=== PATIENT | female | born 1980 | race African-American/Black ===

== ENCOUNTER 2016-11-03 19:41 | Emergency (ER) | payer MEDICAID, OTHER ==
[~2016-11-03] VITALS: Ht 167.6 cm; Wt 78.0 kg
[~2016-11-03 19:41] MED LIST: DIVA500T3; LORA-249; RISP2
[2016-11-04 05:38] VITALS: BP 115/72
== END 2016-11-04 06:55 | disposition home or self-care (01) ==
LOC: ER 19:41
DX: L29.9 Pruritus, unspecified (principal); F29 Unspecified psychosis not due to a substance or known physiological condition; Z86.59 Personal history of other mental and behavioral disorders
CPT/HCPCS: 99283

== ENCOUNTER 2017-03-15 21:55 | Emergency (ER) | payer MEDICAID ==
[~2017-03-15] VITALS: Ht 162.6 cm; Wt 82.0 kg
[2017-03-15 22:57] VITALS: BP 104/59
== END 2017-03-16 05:29 | disposition left against medical advice (07) ==
LOC: ER 21:55
DX: R51 Headache (principal); Z53.21 Procedure and treatment not carried out due to patient leaving prior to being seen by health care provider

== ENCOUNTER 2017-07-12 01:17 | Emergency (ER) | payer MEDICAID ==
[~2017-07-12] VITALS: Ht 165.1 cm; Wt 86.0 kg
[2017-07-12 01:31] VITALS: BP 120/68
== END 2017-07-12 09:33 | disposition left against medical advice (07) ==
LOC: ER 01:17
DX: Z53.21 Procedure and treatment not carried out due to patient leaving prior to being seen by health care provider (principal)

== ENCOUNTER 2017-07-14 05:15 | Emergency (ER) | payer MEDICAID ==
[~2017-07-14] VITALS: Ht 167.6 cm; Wt 72.4 kg
[2017-07-14] MEDS ORDERED: ACETAMINOPHEN 325MG TABLET PO ONE (12:45)
[2017-07-14 14:10] VITALS: BP 109/59
== END 2017-07-14 14:11 | disposition home or self-care (01) ==
LOC: ER 05:15
DX: S60.222A Contusion of left hand, initial encounter (principal); F32.9 Major depressive disorder, single episode, unspecified; X58.XXXA Exposure to other specified factors, initial encounter; Y92.018 Other place in single-family (private) house as the place of occurrence of the external cause
CPT/HCPCS: 99284

== ENCOUNTER 2017-07-14 23:52 | Emergency (ER) | payer MEDICAID ==
[~2017-07-14] VITALS: Ht 167.6 cm; Wt 85.0 kg
[2017-07-15 04:30] VITALS: BP 98/63
== END 2017-07-15 06:10 | disposition home or self-care (01) ==
LOC: ER 23:52
DX: Z00.8 Encounter for other general examination (principal); F32.9 Major depressive disorder, single episode, unspecified
CPT/HCPCS: 99283

== ENCOUNTER 2017-07-16 00:52 | Emergency (ER) | payer MEDICAID ==
[~2017-07-16] VITALS: Ht 167.6 cm; Wt 79.5 kg
[2017-07-16 07:10] VITALS: BP 106/71
== END 2017-07-16 07:25 | disposition home or self-care (01) ==
LOC: ER 00:55
DX: R53.83 Other fatigue (principal); F20.9 Schizophrenia, unspecified; F32.9 Major depressive disorder, single episode, unspecified
CPT/HCPCS: 99281

== ENCOUNTER 2017-07-18 18:25 | Emergency (ER) | payer MEDICAID ==
[~2017-07-18] VITALS: Ht 167.6 cm; Wt 78.0 kg
[2017-07-18] MEDS ORDERED: IBUPROFEN 400MG TABLET PO ONE (22:00)
[2017-07-18 22:30] VITALS: BP 102/80
== END 2017-07-18 22:30 | disposition home or self-care (01) ==
LOC: ER 19:11
DX: G44.209 Tension-type headache, unspecified, not intractable (principal); F32.9 Major depressive disorder, single episode, unspecified
CPT/HCPCS: 99282

== ENCOUNTER 2017-07-19 03:00 | Emergency (ER) | payer MEDICAID ==
[~2017-07-19] VITALS: Ht 167.6 cm; Wt 78.0 kg
[2017-07-19 08:28] VITALS: BP 112/64
== END 2017-07-19 08:30 | disposition home or self-care (01) ==
LOC: ER 03:00
DX: R51 Headache (principal); F32.9 Major depressive disorder, single episode, unspecified
CPT/HCPCS: 99282; Z7610

== ENCOUNTER 2017-07-20 21:34 | Emergency (ER) | payer MEDICAID ==
[~2017-07-20] VITALS: Ht 167.6 cm; Wt 74.5 kg
[2017-07-20 22:01] VITALS: BP 107/62
== END 2017-07-20 23:21 | disposition left against medical advice (07) ==
LOC: ER 21:36
DX: R51 Headache (principal); F32.9 Major depressive disorder, single episode, unspecified
CPT/HCPCS: 99281

== ENCOUNTER 2017-07-20 23:57 | Emergency (ER) | payer MEDICAID ==
[~2017-07-20] VITALS: Ht 167.6 cm; Wt 74.7 kg
[2017-07-21 09:40] VITALS: BP 112/68
== END 2017-07-21 09:42 | disposition home or self-care (01) ==
LOC: ER 23:57
DX: S93.609A Unspecified sprain of unspecified foot, initial encounter (principal); X58.XXXA Exposure to other specified factors, initial encounter; Y93.9 Activity, unspecified; Y92.9 Unspecified place or not applicable
CPT/HCPCS: 99281; Z7610

== ENCOUNTER 2017-07-22 01:20 | Emergency (ER) | payer MEDICAID ==
[~2017-07-22] VITALS: Ht 167.6 cm; Wt 80.0 kg
[2017-07-22 07:20] VITALS: BP 118/64
== END 2017-07-22 07:38 | disposition home or self-care (01) ==
LOC: ER 01:20
DX: Z76.89 Persons encountering health services in other specified circumstances (principal); F29 Unspecified psychosis not due to a substance or known physiological condition; M79.602 Pain in left arm
CPT/HCPCS: 99284

== ENCOUNTER 2017-07-22 08:13 | Emergency (ER) | payer MEDICAID ==
[~2017-07-22] VITALS: Ht 167.6 cm; Wt 80.0 kg
[2017-07-22 10:35] VITALS: BP 108/76
== END 2017-07-22 10:46 | disposition home or self-care (01) ==
LOC: ER 08:13
DX: F29 Unspecified psychosis not due to a substance or known physiological condition (principal); L85.3 Xerosis cutis; Z86.59 Personal history of other mental and behavioral disorders
CPT/HCPCS: 99284

== ENCOUNTER 2017-07-25 01:07 | Emergency (ER) | payer MEDICAID ==
[~2017-07-25] VITALS: Ht 167.6 cm; Wt 78.0 kg
[2017-07-25 01:19] VITALS: BP 114/64
== END 2017-07-25 04:15 | disposition home or self-care (01) ==
LOC: ER 01:58
DX: F32.9 Major depressive disorder, single episode, unspecified (principal)
CPT/HCPCS: 81025; 99282

== ENCOUNTER 2017-07-29 20:40 | Emergency (ER) | payer MEDICAID ==
[~2017-07-29] VITALS: Ht 162.6 cm; Wt 60.0 kg
[2017-07-30 02:05] VITALS: BP 98/62
== END 2017-07-30 03:30 | disposition left against medical advice (07) ==
LOC: ER 20:40
DX: M79.1 Myalgia (principal); Z53.21 Procedure and treatment not carried out due to patient leaving prior to being seen by health care provider

== ENCOUNTER 2017-10-29 16:29 | Emergency (ER) | payer MEDICAID | END 2017-10-29 18:00 | disposition left against medical advice (07) | LOC: ER 17:51 | DX: M79.606 Pain in leg, unspecified (principal); Z53.21 Procedure and treatment not carried out due to patient leaving prior to being seen by health care provider ==